=== PATIENT | male | born 1955 | race Caucasian/White ===

== ENCOUNTER 2017-01-21 12:58 | Emergency (ER) | payer OTHER ==
[~2017-01-21] VITALS: Ht 190.5 cm; Wt 85.0 kg
[2017-01-21 13:20] VITALS: BP 119/68; PULSE 95; RESP 18; TEMP 98.1; O2SAT 95
--- NOTE | 2017-01-21 13:36 | PD ---
HPI Chief Complaint: Psychiatric Symptoms Time Seen by Provider: 13:24 Travel History International Travel<30 days: No Contact w/Intl Traveler<30days: No Traveled to known affect area: No History of Present Illness HPI 61-year-old male is brought to the emergency department By EMS under [place] act for psychiatric evaluation. According to EMS, they're quite familiar with this patient. He resides at an [facility] in [place]. He calls EMS quite often from the bed with the facility telling the staff there. They state that they ran on him twice on Sunday and took him to [facility] as well as once yesterday. They state they have talked to him about the abuse of the 911 system , but he continues to call. Today, they got police involved, because he calls so often. The police patrol officer saw a scratch on his knee and apparently the patient stated that he wanted to rather than stay at the facility. Therefore, they placed him under [place] act. EMS states that whenever he calls for them, he states "I can't breathe". When asked by the patient is here today , he states "I can't breathe". Patient denies any suicidal or homicidal ideation to me. He has a colostomy noted to the abdomen. He reports chronic abdominal pain. According to EMS, he will take off his colostomy bag to get attention from the staff at this facility. According to records from the facility, patient has history of cognitive communication deficit, difficulty walking, generalized muscle weakness, dysphagia, angina pectoris, atrial fibrillation, BPH, unspecified psychosis, hypertension, major depressive disorder, generalized anxiety disorder, hyperlipidemia, GERD, unsteadiness on feet, insomnia, CAD. PFSH Social History Alcohol Use: No Tobacco Use: No Substance Use: No Allergies-Medications (Allergen,Severity, Reaction): Coded Allergies: norepinephrine (Verified Allergy, Unknown, 01/21/17) Review of Systems Except as stated in HPI: all other systems reviewed are Neg Physical Exam Narrative GENERAL: Well-nourished, well-developed male patient, afebrile. SKIN: Focused skin assessment warm/dry. Patient has small superficial abrasion noted to her right knee. HEAD: Normocephalic. Atraumatic. EYES: No scleral icterus. No injection or drainage. NECK: Supple, trachea midline. No JVD or lymphadenopathy. CARDIOVASCULAR: Regular rate and rhythm without murmurs, gallops, or rubs. RESPIRATORY: Breath sounds equal bilaterally. No accessory muscle use. Lungs sounds are clear to auscultation throughout. GASTROINTESTINAL: Abdomen soft, non-tender, nondistended. Colostomy is noted. MUSCULOSKELETAL: No cyanosis, or edema. BACK: Nontender without obvious deformity. No CVA tenderness. PSYCHIATRIC: No delusional thought processes. No hallucinations. Data Data Last Documented VS Vital Signs Date Time Temp Pulse Resp B/P (MAP) Pulse Ox O2 Delivery O2 Flow Rate FiO2 01/21/17 13:20 98.1 95 18 119/68 (85) 95 Room Air Orders Orders Complete Blood Count With Diff (01/21/17 13:24) Comprehensive Metabolic Panel (01/21/17 13:24) Urinalysis - C+S If Indicated (01/21/17 13:24) Valproic Acid (Depakene) (01/21/17 13:24) Phenytoin (Dilantin) (01/21/17 13:24) Psych Screen (01/21/17 13:24) Drug Screen, Random Urine (01/21/17 13:24) Act Partial Throm Time (Ptt) (01/21/17 13:24) Prothrombin Time / Inr (Pt) (01/21/17 13:24) Chest, Single Ap (01/21/17 ) Cath For Specimen (01/21/17 13:36) Urine Culture (01/21/17 14:00) Ceftriaxone Inj (Rocephin Inj) (01/21/17 15:15) Labs Laboratory Tests Test 01/21/17 13:30 01/21/17 14:00 White Blood Count 7.8 TH/MM3 Red Blood Count 4.82 MIL/MM3 Hemoglobin 14.7 GM/DL Hematocrit 43.5 % Mean Corpuscular Volume 90.3 FL Mean Corpuscular Hemoglobin 30.6 PG Mean Corpuscular Hemoglobin Concent 33.8 % Red Cell Distribution Width 14.7 % Platelet Count 156 TH/MM3 Mean Platelet Volume 9.1 FL Neutrophils (%) (Auto) 69.4 % Lymphocytes (%) (Auto) 20.2 % Monocytes (%) (Auto) 6.9 % Eosinophils (%) (Auto) 2.7 % Basophils (%) (Auto) 0.8 % Neutrophils # (Auto) 5.4 TH/MM3 Lymphocytes # (Auto) 1.6 TH/MM3 Monocytes # (Auto) 0.5 TH/MM3 Eosinophils # (Auto) 0.2 TH/MM3 Basophils # (Auto) 0.1 TH/MM3 CBC Comment DIFF FINAL Differential Comment Prothrombin Time 18.0 SEC Prothromb Time International Ratio 1.6 RATIO Activated Partial Thromboplast Time 36.5 SEC Blood Urea Nitrogen 26 MG/DL Creatinine 1.06 MG/DL Random Glucose 86 MG/DL Total Protein 7.1 GM/DL Albumin 3.2 GM/DL Calcium Level 8.5 MG/DL Alkaline Phosphatase 50 U/L Aspartate Amino Transf (AST/SGOT) 25 U/L Alanine Aminotransferase (ALT/SGPT) 21 U/L Total Bilirubin 0.5 MG/DL Sodium Level 138 MEQ/L Potassium Level 4.7 MEQ/L Chloride Level 108 MEQ/L Carbon Dioxide Level 26.0 MEQ/L Anion Gap 4 MEQ/L Estimat Glomerular Filtration Rate 71 ML/MIN Phenytoin (Dilantin) Level LESS THAN 0.4 MCG/ML Valproic Acid (Depakene) Level 48 MCG/ML Urine Color YELLOW Urine Turbidity HAZY Urine pH 5.5 Urine Specific [place] 1.020 Urine Protein 30 mg/dL Urine Glucose (UA) NEG mg/dL Urine Ketones TRACE mg/dL Urine Occult Blood MOD Urine Nitrite POS Urine Bilirubin NEG Urine Urobilinogen LESS THAN 2.0 MG/DL Urine Leukocyte Esterase LARGE Urine RBC 39 /hpf Urine WBC 146 /hpf Urine Bacteria FEW /hpf Urine Mucus FEW /lpf Microscopic Urinalysis Comment CULTURE INDICATED Urine Opiates Screen NEG Urine Barbiturates Screen NEG Urine Amphetamines Screen NEG Urine Benzodiazepines Screen POS Urine Cocaine Screen NEG Urine Cannabinoids Screen NEG MDM Medical Decision Making Medical Screen Exam Complete: Yes Emergency Medical Condition: Yes Medical Record Reviewed: Yes Interpretation(s) Last Impressions Chest X-Ray 01/21/17 0000 Signed Impressions: Service Date/Time: Saturday, January 21, 2017 14:35 - CONCLUSION: No acute disease. Juma Olivera Jr., MD Differential Diagnosis Depression versus anxiety versus chronic shortness of breath versus malingering Narrative Course 61-year-old male in a [place] act by local police for abuse the 911 system, stating that he did not want to be at this facility or he would "continue to hurt himself". Patient denies any suicidal or homicidal ideation to me. CBC, CMP, Alcohol level, UDS, UA, depakote level, Dilantin level, PTT, PT/INR, chest x-ray are ordered and pending. Records will be obtained from [facility]. CBC shows no acute abnormalities. CMP shows no acute abnormalities. UDS is positive benzodiazepines. UA shows positive nitrite, large leukocyte esterase, 146 WBC. Depakote level is 48. Dilantin level is less than 0.4. PTT is 18.0. PT/INR is 36.5/1.6. Chest x-ray shows no acute disease. Patient is given Rocephin 1 g IV for UTI. I obtained records from [facility] from yesterday. According to their note, he has been seen in their ER 7 times in the last month. Patient was discharged yesterday with prescription for Macrobid for UTI. My attending physician, Dr. Rodriguez, as well. She agrees that [place] act is inappropriate. She has lifted the [place] act. Patient is stable to be discharged back to facility. He'll be discharged with a prescription for Cipro for UTI. The patient was discharged in stable condition with instructions, including return instructions and follow up instructions. Diagnosis Primary Impression: Urinary tract infection Qualified Codes: N30.00 - Acute cystitis without hematuria Referrals: Primary Care Physician call for appointment Patient Instructions: General Instructions, Urinary Tract Infection in Men (ED) Additional Instructions: Continue Macrobid as prescribed for UTI. This was prescribed by [facility] Follow-up with your primary care physician. Return to the emergency department for any acute worsening of symptoms. Med/Other Pt SpecificInfo: No Change to Meds Disposition: 01 DISCHARGE HOME Condition: Stable Kamla Fletcher EVELIO Jan 21, 2017 13:36
[2017-01-21 13:45] LABS: AUTOMATED NEUTROPHIL # 5.4 TH/MM3 (1.8-7.7); BASOPHIL # 0.1 TH/MM3 (0-0.2); BASOPHIL % 0.8 % (0.0-2.0); EOSINOPHIL # 0.2 TH/MM3 (0-0.4); EOSINOPHIL % 2.7 % (0.0-4.0); HEMATOCRIT 43.5 % (39.0-51.0); HEMO FLAGS DIFF FINAL; LYMPH % 20.2 % (9.0-44.0); LYMPHOCYTE # 1.6 TH/MM3 (1.0-4.8); MEAN CELL VOLUME 90.3 FL (80.0-100.0); MEAN CORPUSCULAR HEMOGLOBIN 30.6 PG (27.0-34.0); MEAN CORPUSCULAR HGB CONC 33.8 % (32.0-36.0); MONO % 6.9 % (0.0-8.0); NEUT % 69.4 % (16.0-70.0); PLATELET COUNT 156 TH/MM3 (150-450); RED BLOOD COUNT 4.82 MIL/MM3 (4.50-5.90); RED CELL DISTRIBUTION WIDTH 14.7 % (11.6-17.2); WHITE BLOOD COUNT 7.8 TH/MM3 (4.0-11.0)
[2017-01-21 13:55] LABS: APTT (PATIENT) 36.5 SEC (24.3-30.1); INTERNATIONAL NORMALIZED RATIO 1.6 RATIO
[2017-01-21 14:04] LABS: ALKALINE PHOSPHATASE 50 U/L (45-117); TOTAL BILIRUBIN ADULT 0.5 MG/DL (0.2-1.0)
--- NOTE | 2017-01-21 14:07 | RADRPT ---
EXAM DATE/TIME: 01/21/2017 14:35 [facility] COMPARISON: No previous studies available for comparison. INDICATIONS : Shortness of breath. MEDICAL HISTORY : None. SURGICAL HISTORY : None. ENCOUNTER: Initial ACUITY: 1 day PAIN SCORE: 0/10 LOCATION: Bilateral chest FINDINGS: 2 portable frontal views of the chest show a large hiatal hernia. Heart is normal in size. Lungs are clear. No infiltrates or effusions. No pneumothorax. A scoliotic spine. CONCLUSION: No acute disease. Juma Olivera Jr., MD on January 21, 2017 at 14:05 Board Certified Radiologist. This report was verified electronically.
[2017-01-21 14:09] LABS: ALT (GPT) 21 U/L (12-78); ANION GAP 4 MEQ/L (5-15); AST (GOT) 25 U/L (15-37); BLOOD UREA NITROGEN 26 MG/DL (7-18); CHLORIDE 108 MEQ/L (98-107); GLOMERULAR FILTRATION RATE 71 ML/MIN (>89); POTASSIUM 4.7 MEQ/L (3.5-5.1); SODIUM (NA) 138 MEQ/L (136-145)
[2017-01-21 14:30] LABS: BACTERIA, URINE FEW /hpf; BLOOD, URINE MOD (NEG); COMMENT (UR) CULTURE INDICATED; CULTURE IF INDICATED CULTURE INDICATED; GLUCOSE,URINE NEG (NEG); KETONE, URINE TRACE mg/dL (NEG); MUCUS URINE FEW /lpf (OCC); NITRITE,URINE POS (NEG); PH, URINE 5.5 (5.0-8.5); URINE COLOR YELLOW (YELLW/STRAW)
--- NOTE | 2017-01-21 14:42 | PD ---
Physical Exam Date Seen by Provider: Jan 21, 2017 Narrative This patient was sent to us as a [place] Act because he calls 911 too often. Data Data Last Documented VS Vital Signs Date Time Temp Pulse Resp B/P (MAP) Pulse Ox O2 Delivery O2 Flow Rate FiO2 01/21/17 13:20 98.1 95 18 119/68 (85) 95 Room Air Orders Orders Complete Blood Count With Diff (01/21/17 13:24) Comprehensive Metabolic Panel (01/21/17 13:24) Urinalysis - C+S If Indicated (01/21/17 13:24) Valproic Acid (Depakene) (01/21/17 13:24) Phenytoin (Dilantin) (01/21/17 13:24) Psych Screen (01/21/17 13:24) Drug Screen, Random Urine (01/21/17 13:24) Act Partial Throm Time (Ptt) (01/21/17 13:24) Prothrombin Time / Inr (Pt) (01/21/17 13:24) Chest, Single Ap (01/21/17 ) Cath For Specimen (01/21/17 13:36) Urine Culture (01/21/17 14:00) Labs Laboratory Tests Test 01/21/17 13:30 01/21/17 14:00 White Blood Count 7.8 TH/MM3 Red Blood Count 4.82 MIL/MM3 Hemoglobin 14.7 GM/DL Hematocrit 43.5 % Mean Corpuscular Volume 90.3 FL Mean Corpuscular Hemoglobin 30.6 PG Mean Corpuscular Hemoglobin Concent 33.8 % Red Cell Distribution Width 14.7 % Platelet Count 156 TH/MM3 Mean Platelet Volume 9.1 FL Neutrophils (%) (Auto) 69.4 % Lymphocytes (%) (Auto) 20.2 % Monocytes (%) (Auto) 6.9 % Eosinophils (%) (Auto) 2.7 % Basophils (%) (Auto) 0.8 % Neutrophils # (Auto) 5.4 TH/MM3 Lymphocytes # (Auto) 1.6 TH/MM3 Monocytes # (Auto) 0.5 TH/MM3 Eosinophils # (Auto) 0.2 TH/MM3 Basophils # (Auto) 0.1 TH/MM3 CBC Comment DIFF FINAL Differential Comment Prothrombin Time 18.0 SEC Prothromb Time International Ratio 1.6 RATIO Activated Partial Thromboplast Time 36.5 SEC Blood Urea Nitrogen 26 MG/DL Creatinine 1.06 MG/DL Random Glucose 86 MG/DL Total Protein 7.1 GM/DL Albumin 3.2 GM/DL Calcium Level 8.5 MG/DL Alkaline Phosphatase 50 U/L Aspartate Amino Transf (AST/SGOT) 25 U/L Alanine Aminotransferase (ALT/SGPT) 21 U/L Total Bilirubin 0.5 MG/DL Sodium Level 138 MEQ/L Potassium Level 4.7 MEQ/L Chloride Level 108 MEQ/L Carbon Dioxide Level 26.0 MEQ/L Anion Gap 4 MEQ/L Estimat Glomerular Filtration Rate 71 ML/MIN Phenytoin (Dilantin) Level LESS THAN 0.4 MCG/ML Valproic Acid (Depakene) Level 48 MCG/ML Urine Color YELLOW Urine Turbidity HAZY Urine pH 5.5 Urine Specific [place] 1.020 Urine Protein 30 mg/dL Urine Glucose (UA) NEG mg/dL Urine Ketones TRACE mg/dL Urine Occult Blood MOD Urine Nitrite POS Urine Bilirubin NEG Urine Urobilinogen LESS THAN 2.0 MG/DL Urine Leukocyte Esterase LARGE Urine RBC 39 /hpf Urine WBC 146 /hpf Urine Bacteria FEW /hpf Urine Mucus FEW /lpf Microscopic Urinalysis Comment CULTURE INDICATED Urine Opiates Screen NEG Urine Barbiturates Screen NEG Urine Amphetamines Screen NEG Urine Benzodiazepines Screen POS Urine Cocaine Screen NEG Urine Cannabinoids Screen NEG MDM Supervised Visit with LUZ ELENA: Yes Narrative Course I, Dr. Rodriguez, have reviewed the advance practice practitioner's documentation and am in agreement, met with the patient face to face, made the diagnosis, and the medical decision making was done by me. *My assessment and Findings: This patient is awake and alert. He knows his name , where he is, that it is Sunday and that it is December. He does not know the year. He does not know why he is here. He admits that he call 911 earlier today because his stomach hurt. He states that he has vomited and that his abdominal pain has completely resolved. He adamantly denies any suicidal ideation. He states that he has no intention of harming anyone else. This patient is obviously mentally delayed but does not present any eminent danger to himself or to others. His [place] Act will be lifted. Shayy Rodriguez MD Jan 21, 2017 14:42
[2017-01-21] MEDS ORDERED: cefTRIAXone INJ 1,000 MG in SODIUM CHLORIDE 0.9% INJ 100 ML IV ONE (15:15)
[2017-01-21] MEDS ORDERED: LIDOCAINE HCL 1% 50 ML VIAL XX ONE (16:00)
== END 2017-01-21 17:29 | disposition home or self-care (01) ==
LOC: NEPD 12:58
DX: N39.0 Urinary tract infection, site not specified (principal); R11.10 Vomiting, unspecified; R10.9 Unspecified abdominal pain; G89.29 Other chronic pain; B96.1 Klebsiella pneumoniae [K. pneumoniae] as the cause of diseases classified elsewhere; R41.841 Cognitive communication deficit; I48.91 Unspecified atrial fibrillation; K21.9 Gastro-esophageal reflux disease without esophagitis; E78.5 Hyperlipidemia, unspecified
CPT/HCPCS: 71010; 80053; 80164; 80185; 80307; 81001; 85025; 85610; 85730; 87077; 87086; 87186; 96372; 99284; J0696; P9612